=== PATIENT | female | born 2000 | race Caucasian/White ===

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

== ENCOUNTER 2021-06-18 06:29 | Emergency (ER) | payer SELFPAY ==
[~2021-06-18] VITALS: Wt 93.9 kg
[2021-06-18] MEDS ORDERED: PENICILLIN VK500 MG PO (06:43)
== END 2021-06-18 06:54 | disposition home or self-care (01) ==
LOC: ED 06:29
DX: K04.7 Periapical abscess without sinus (principal); K02.9 Dental caries, unspecified

== ENCOUNTER 2021-08-05 15:08 | Emergency (ER) | payer SELFPAY ==
[~2021-08-05] VITALS: Ht 162.5 cm; Wt 88.9 kg
[~2021-08-05 15:08] MED LIST: PENICILLIN VK500 MG PO
[2021-08-05 16:48] LABS: BILIRUBIN Negative (Negative); BLOOD Negative (Negative); CLARITY Clear (Clear); COLOR Yellow (Yellow); GLUCOSE Negative (Negative); KETONE Negative (Negative); LEUKO ESTERASE Negative (Negative); NITRITE Negative (Negative); PH 6.5 (4.5-8.0)
[2021-08-05 17:11] LABS: BACTERIA TRACE; RBC 0-2 rbc/hpf (0-2); WBC 0-2 wbc/hpf (0-5)
[2021-08-05 18:46] LABS: BASO % 0.3 % (0.0-1.0); EOS % 0.2 % (1.0-4.0); HEMATOCRIT 37.8 % (37.0-47.0); LYMPH # 1.6 10*3/uL (1.3-4.4); LYMPH % 13.2 % (27.0-41.0); MEAN CELL VOLUME 88.7 fl (81.0-99.0); MEAN CORPUSCULAR HGB 30.3 pg (27.0-31.0); MEAN CORPUSCULAR HGB CONC 34.1 g/dl (33.0-37.0); MEAN PLATELET VOLUME 9.7 fl (9.6-12.3); MONO # 0.5 10*3/uL (0.1-1.0); MONO % 3.8 % (3.0-9.0); NEUT # 9.9 10*3/uL (2.3-7.9); NEUT % 82.2 % (47.0-73.0); PLATELET COUNT AUTOMATED 376 10*3/uL (130-400); RED BLOOD COUNT 4.26 10*6/uL (4.10-5.10); RED CELL DISTRI WIDTH 11.9 % (0-14.5); WHITE BLOOD COUNT 12.1 10*3/uL (4.8-10.8)
[2021-08-05 19:02] LABS: ALBUMIN 3.5 gm/dl (3.1-4.5); ALKALINE PHOSPHATASE 96 U/L (45-117); BUN 6 mg/dl (7-24); CHLORIDE 109 mmol/L (98-107); CREATININE 0.73 mg/dL (0.55-1.02); LIPASE 166 U/L (73-393); POTASSIUM 3.9 mmol/L (3.5-5.1); SGOT/AST 12 IU/L (3-35); SGPT/ALT 27 U/L (12-78); SODIUM 141 mmol/L (136-145); TOTAL PROTEIN 6.6 gm/dL (6.4-8.2)
[2021-08-05] MEDS ORDERED: Motrin,Rufen800 MG PO (21:56)
== END 2021-08-05 22:17 | disposition home or self-care (01) ==
LOC: ED 15:08
PROVIDERS: Emergency Medicine; Nurse Practitioner
DX: R10.31 Right lower quadrant pain (principal); R10.32 Left lower quadrant pain; R10.2 Pelvic and perineal pain; Z91.040 Latex allergy status

== ENCOUNTER 2021-11-05 23:26 | Emergency (ER) | payer SELFPAY ==
[~2021-11-05] VITALS: Ht 162.5 cm; Wt 90.7 kg
[~2021-11-05 23:26] MED LIST changes: +Motrin,Rufen800 MG PO
[2021-11-06] MEDS ORDERED: AUGMENTIN 875-875 MG PO (00:35)
[2021-11-06] MEDS ORDERED: PREDNISONE50 MG PO (00:35)
== END 2021-11-06 01:00 | disposition home or self-care (01) ==
LOC: ED 23:26
DX: T78.3XXA Angioneurotic edema, initial encounter (principal); Y92.89 Other specified places as the place of occurrence of the external cause